=== PATIENT | female | born 1995 | race Caucasian/White ===

== ENCOUNTER 2018-03-08 09:27 | Emergency (ER) | payer SELFPAY ==
[2018-03-08 09:37] VITALS: RESP 18; O2SAT 100
[2018-03-08 10:50] LABS: SQUAMOUS EPITHIAL < 1 /hpf (0-5); URINE BILIRUBIN NEGATIVE (NEGATIVE); URINE BLOOD SMALL (NEGATIVE); URINE CLARITY SLIGHTY-CLOUDY (Clear); URINE COLOR YELLOW (YELLOW); URINE GLUCOSE (UA) NEG (Normal); URINE LEUKOCYTE ESTERASE NEG Leu/uL (Negative); URINE PROTEIN NEGATIVE (NEGATIVE); URINE UROBILINOGEN 0.2-1.0 mg/dL (0.2-1.0)
--- NOTE | 2018-03-08 13:22 | US ---
Date of service: 03/08/2018 PROCEDURE: Obstetrical ultrasound examination, limited HISTORY: Placenta location/dating COMPARISON: Not available TECHNIQUE: Transabdominal FINDINGS: Single live intrauterine gestation in breech presentation. heart rate 143 beats per minute. Normal quantity of amniotic fluid. Posterior placenta. No evidence of placenta previa. Cervix measures 4.5 cm in length and is closed. biometry yields a gestational age of 19 weeks 4 days. The ISABELLE by ultrasound is 07/29/2018. Review of anatomy is in grossly limited at this time. There is fluid distending the stomach and urinary bladder. A 4 chamber heart is demonstrated. The anterior abdominal wall is intact. IMPRESSION: Single live intrauterine gestation of approximately 19 weeks 4 days. heart rate 143. Posterior placenta. No previa. Cervix closed. No gross anatomic abnormality.
--- NOTE | 2018-03-08 15:37 | OBDCSUM ---
Datetime: 03/08/2018 13:24 Discharged to, Provider: Home Follow up at, Provider: PETEY Retana Instr Activity: Normal activity Disch Instr Diet: Regular Discharge Time: 03/08/2018 13:24 Follow up in weeks, Provider: 03/18/18@ 10:15 am Disch Referrals: None Disch Activity Restrictions: No sexual activity; Nothing in vagina - [place], tampons, douche Discharge Diagnosis Prov Other: No evidence of vaginal bleeding
--- NOTE | 2018-03-08 15:38 | OBHP ---
Datetime: 03/08/2018 13:23 IP Adm Impression: , intrauterine ; No Active Labor; Intact Membranes IP Admit Plan: Observation/Evaluation; Discharge home Admit Comment, IP Provider: HPI: Silvana is a 22yo G1 at 20.3 weeks who presents to triage for evaluat ion of some light vaginal spotting. She began having mild lower abdominal cramping Wednesday evening f ollowed by one episode of a small amount of bright red blood Wednesday morning on the toilet paper when she wiped. She's had no further episodes of bleeding since. Does endorse some dysuria and urinary urg ency but denies diarrhea, nausea or vomiting. She recently moved from [place], [place] with a friend to live in [place] with another corazon weber. She reports early care with a firm LMP and 12 week dating US, though she has not decided which clinic to establish with here. Denies any complications with this . ROS: As above, otherwise negative PMH: Denies PSH: Denies Family History: Denies Medications: PNV Allergies: NKDA OBJECTIVE See physical exam section Doppler - FHR 155 Labs: UA negative for LCE and nitrites Ultrasound: posterior placenta, no placenta previa Assessment/Plan: 22 yo G1 at 20.3 weeks here for evaluation of one episode of vaginal spotting jose roximately 24 hours ago. On initial evaluation she was found to be hemodynamically stable with approp riate heart rate and no vaginal bleeding on speculum exam. Her UA was unremarkable and her US s howed no placenta abnormalities. At this time there is no indication of placenta previa or a signific ant abruption or cervicitis/other infectious etiology. She is stable for discharge home and follow-up as an outpatient. She was given the number for the [facility] and will establish care there. The patient understood the plan and all questions were answered. Gertrude Reyes MD [facility]. I spole with this patinet. She understood medical condition. No intercou rse. rest and follow up [facility]. MAHNDO Comments, ACOG Physical Exam: General: alert, oriented, no acute distress HEENT: mucous membranes moist Respiratory: nonlabored respirations CV: Regular rate Abdomen: nontender, gravid Speculum exam: closed cervix with ectropion visualized, no blood seen EGA AdmitDate IP: 20.3 IP Chief Complaint: Vaginal bleeding
[2018-03-08 18:05] VITALS: BP 83/65; PULSE 93; TEMP 98.2
== END 2018-03-08 13:20 | disposition home or self-care (01) ==
LOC: H.EROB2 09:27 → H.EROB 10:25 → H.EROB2 13:20
DX: O26.852 Spotting complicating pregnancy, second trimester (principal); O26.92 Pregnancy related conditions, unspecified, second trimester; R10.2 Pelvic and perineal pain; Z3A.20 20 weeks gestation of pregnancy

== ENCOUNTER 2018-07-30 22:48 | Inpatient (IN) | payer MEDICAID, SELFPAY ==
[2018-07-30 23:47] VITALS: BMI 32.5
--- NOTE | 2018-07-31 00:06 | OBADHP ---
Datetime: 07/30/2018 23:59 Admit Comment, IP Provider: 22yo at 40wks GA c/o leaking fluid starting at 9PM yesterday (>24hr s ago). Denies VB, ctxs. Reports normal FM. records reviewed. PMHx denies PSHx denies Meds PNV NKDA OBHx SocHx Denies tob, etoh, drugs A-- 40wks, PROM, GBS negative P-- Plan for cervadil for cervical ripening. FHT category I. Discussed plan with patient and all patient questions answered. Pelvic Type - PN: Adequate Extremities - PN: Normal Abdomen - PN: Normal Back - PN: Normal Breast - PN: Normal Lungs - PN: Normal Heart - PN: Normal Thyroid - PN: Normal Neurologic - PN: Normal HEENT - PN: Normal General - PN: Normal FHR - Baseline A Provider: 140s-150s Membranes, Provider: Ruptured Contraction Comments Provider: occas Comments, ACOG Physical Exam: SSE: +grossly ruptured, clear fluid cephalic via exam EFW 7.5lbs Pool Provider: Positive Nitrazine Provider: Positive Vital Signs Provider: Reviewed; Within Normal Limits IP Chief Complaint: Suspected ruptured membranes NICHD Variability Prov Fetus A: Moderate 6-25bpm NICHD Accel Fetus A IP Provider: 15X15 FHR Category Provider Fetus A: Category I NICHD Decel Fetus A IP Provider: None Dilatation, Provider: 0 Effacement, Provider: 25 Station, Provider: -3 Genitourinary Exam: Normal DTRs - PN: Normal EGA AdmitDate IP: 40.2 IP Adm Impression: Term, intrauterine ; No Active Labor; Ruptured Membranes IP Admit Plan: Admit to unit; Initiate labor induction protocol
[2018-07-31] MEDS: Lactated Ringer's 1,000 ML IV SCH (00:16)
[2018-07-31 00:48] LABS: BASO % 0.2 % (0.0-2.0); EOS # 0.1 K/uL (0.0-0.7); HEMOGLOBIN 13.5 g/dL (12.0-16.0); LYMPH # 2.3 K/uL (1.0-4.3); LYMPH % 20.4 % (20.0-40.0); MEAN CELL VOLUME 90.6 fl (81.0-99.0); MEAN CORPUSCULAR HEMOGLOBIN 30.4 pg (27.0-31.0); MEAN CORPUSCULAR HGB CONC 33.5 g/dL (33.0-37.0); MEAN PLATELET VOLUME 8.8 fl (7.2-11.7); MONO # 1.1 K/uL (0.0-0.8); MONO % 9.4 % (0.0-10.0); NEUT # 7.7 K/uL (1.8-7.0); RBC 4.46 Mil/uL (3.80-5.20); RED CELL DISTRIBUTION WIDTH 12.6 % (11.5-14.5); WHITE BLOOD COUNT 11.2 K/uL (4.8-10.8)
[2018-08-01] MEDS ORDERED: Oxytocin 30 UNIT 30 UNITS/500 ML BAG IV ONE ×2 (04:02→14:18)
[2018-08-01] MEDS ORDERED: Nalbuphine HCL 10 mg/ml Ampule IVP PRN (05:50)
[2018-08-01] MEDS ORDERED: Nalbuphine 20 mg/ml Inj (10 ml) ONE (05:53)
[2018-08-01] MEDS: Lactated Ringer's 1,000 ML IV SCH ×6 (07:30→18:00)
[2018-08-01] MEDS ORDERED: Fentanyl/Bupivacaine HCl 250 ML EPI ONE (09:24)
[2018-08-01] MEDS ORDERED: OXYTOCIN/0.9 % NS 20 UNIT/1,000 ML BAG IV ONE (14:18)
[2018-08-01] MEDS ORDERED: Bupivacaine HCl 0.25% PF (10 ml) Inj ONE (14:57)
[2018-08-01] MEDS ORDERED: Lidocaine 1% Inj (20ml) ONE (15:09)
[2018-08-01] MEDS ORDERED: ceFAZolin IV 2 gm in Dextrose 2 GM/50 ML BAG IVPB SCH (20:11)
--- NOTE | 2018-08-01 20:50 | OBPN ---
Datetime: 08/01/2018 20:46 IP Progress Impression: Arrest of dilatation/descent IP Informed Consent Obtain: Risks, Benefits and Alternatives Discussed IP Procedures: Sterile Vag Exam IP Progress Plan: Deliver- Section Membranes, Provider: Ruptured Amniotic Fluid Color, Provider: Meconium, Light Contraction Comments Provider: Q3 FHR - Baseline A Provider: 140"S IP Progress Note Comment: 22 yo G1 at 40+3 w/ arrrest of descent Discussed dx to pt and her Consents for procedure and possible blood transfusion obtained Will proceed w/ section (Annotations: Data stored by CPN on behalf of user) Vital Signs Provider: Reviewed NICHD Accel Fetus A IP Provider: 15X15 FHR Category Provider Fetus A: Category I NICHD Variability Prov Fetus A: Moderate 6-25bpm Dilatation, Provider: 10 Effacement, Provider: 100 Station, Provider: 1 NICHD Decel Fetus A IP Provider: None Datetime: 08/01/2018 08:05 Gestation - Est Wks by US: 40.3
[2018-08-01] MEDS ORDERED: Morphine 1 mg/ml preservative-free Inj(Duramorph) ONE (20:58)
[2018-08-01] MEDS ORDERED: Oxycodone/Acetaminophen 5/325 mg Tab PO PRN ×2 (22:28)
--- NOTE | 2018-08-01 22:41 | OBDS ---
DELIVERY PERSONNEL Delivery Doctor: Darrin Tubbs MD Scrub Nurse: Allison Hansen OBT Bariatric Surgeon: Joya Woods RN Anesthesiologist: Stefan Pollock MATERNAL INFORMATION Delivery Anesthesia: Epidural; Spinal Medications in Delivery: ancef 2 grams, pitocin 30 units/500ml Placenta Cultured: No Maternal Complications: None Provider Comments: Pre-op dx: 22 yo G1 at 40+ 3 wks w/ arrest of descent at +1 station Post-op dx: Same Procedure: Primary low transverse section Surgeon: Suly Assistants: Drs. Nathan Menendez, PGY-3 and Josh Rashid, PGY-1 Anesthesia: Spinal Anesthesiologist: Dr. Stefan Beyer Findings: Viable male infant delivered through thick meconium in direct OP position w/ nuchal cord x1 at 2134. Apgars 9 and 9. Wt 7#7, 3370gms. Nl appearing uterus, tubes, and ovaries. EBL: 900mL Complications: None LABOR SUMMARY EDC: 07/29/2018 00:00 No. Babies in Womb: 1 LABOR INFORMATION Reason for Induction: Not Applicable Cervical Ripening Agents: Cytotec @ 25 mcg VAG Oxytocin: Augmentation Group B Beta Strep: Negative Antibiotics # of Doses: 0 Antibiotics Time of Last Dose: n/a Reason Steroids Not Administered: Not Applicable MEMBRANES Membranes Rupture Method: Spontaneous Rupture of Membranes: 07/29/2018 21:00 Length of Rupture (hrs): 72.57 Amniotic Fluid Color: Heavy Meconium Amniotic Fluid Amount: Small Amniotic Fluid Odor: Normal STAGES OF LABOR Stage 3 hrs: 0 Stage 3 min: 0 CSECTION DELIVERY Primary Indication: Arrest of Descent CSection Urgency: Non Elective CSection Incidence: Primary Labor: Labor Elective: Nonelective CSection Incision: Lower Uterine Transverse BABY A INFORMATION Infant Delivery Date/Time: 08/01/2018 21:34 Method of Delivery: Born in Route : No : N/A Forceps: N/A Vacuum Extraction: N/A Shoulder Dystocia : No SHOULDER DYSTOCIA BABY A Infant Delivery Date/Time: 08/01/2018 21:34 PRESENTATION/POSITION BABY A Presentation: Cephalic Cephalic Presentation: Vertex Breech Presentation: N/A PLACENTA INFORMATION BABY A Placenta Delivery Time : 08/01/2018 21:34 Placenta Method of Delivery: Spontaneous Placenta Status: Delivered SCORES BABY A Heart Rate 1 min: >100 bpm Resp Effort 1 min: Good Cry Reflex Irritability 1 min: Cough or Sneeze or Pulls Away Muscle Tone 1 min: Active Motion Color 1 min: Body [place], Extremities Blue Resuscitation Effort 1 min: Tactile Stimulation SCORE 1 MIN: 9 Heart Rate 5 min: >100 bpm Resp Effort 5 min: Good Cry Reflex Irritability 5 min: Cough or Sneeze or Pulls Away Muscle Tone 5 min: Active Motion Color 5 min: Body [place], Extremities Blue Resuscitation Effort 5 min: N/A SCORE 5 MIN: 9 INFORMATION BABY A Gestational Age at Delivery: 40.3 Gestational Status: Term Infant Outcome : Liveborn Condition : Stable Infant Sex: Male IDENTIFICATION/MEDS BABY A ID Band Number: [id number] ID Band Location: Left Leg; Left Arm WEIGHT/LENGTH BABY A Infant Birthweight (gms): 3370 Weight (lb): 7 Infant Weight (oz): 7 CORD INFORMATION BABY A No. Cord Vessels: 3 Nuchal Cord : Around Neck x1, Loose Cord Blood Taken: Yes Suction: Mouth; Nose
[2018-08-02] MEDS ORDERED: Simethicone 80 mg Chewtab PO SCH (01:00)
[2018-08-02] MEDS ORDERED: Lactated Ringer's 1,000 ML IV SCH ×3 (01:15→23:45)
[2018-08-02] MEDS ORDERED: Oxycodone/Acetaminophen 5/325 mg Tab PO PRN (01:31)
[2018-08-02 06:26] LABS: MEAN CELL VOLUME 92.9 fl (81.0-99.0); MEAN CORPUSCULAR HEMOGLOBIN 30.6 pg (27.0-31.0); MEAN CORPUSCULAR HGB CONC 32.9 g/dL (33.0-37.0); RBC 3.92 Mil/uL (3.80-5.20); RED CELL DISTRIBUTION WIDTH 12.6 % (11.5-14.5); WHITE BLOOD COUNT 26.4 K/uL (4.8-10.8)
--- NOTE | 2018-08-02 07:08 | OP ---
PROCEDURE DATE: 08/01/2018 PREOPERATIVE DIAGNOSIS: This is a 22-year-old G1 at 41 weeks and 3 days with arrest of descent at plus 1 station. POSTOPERATIVE DIAGNOSIS: This is a 22-year-old G1 at 41 weeks and 3 days with arrest of descent at plus 1 station. PROCEDURE: Primary low transverse section. SURGEON: Bessie Tubbs MD ASSISTANTS: Nathan Menendez DO, PGY-3; surgery resident PGY-3; and Josh Rashid, family services worker, PGY-1. TYPE OF ANESTHESIA: Spinal. ANESTHESIA ADMINISTERED BY: Stefan Beyer MD FINDINGS: A viable male delivered through thick meconium in direct OP position with a nuchal cord x1 at 2134, Apgars 9 and 9 at one and five minutes respectively. The weight was 7 pounds 7 ounces or 3370 g. Normal-appearing uterus, tubes, and ovaries. ESTIMATED BLOOD LOSS: 900 mL. COMPLICATIONS: None. DESCRIPTION OF PROCEDURE: The patient was taken to the operating room where spinal anesthesia was placed. She was then prepped and draped in the normal sterile fashion in the dorsal supine position with a leftward tilt. A Echevarria had been placed in the bladder. The spinal was tested and found to be adequate. A Pfannenstiel skin incision was then made with a scalpel and carried through to the underlying layer of fascia with the Bovie. The fascia was incised in the midline. The incision was extended laterally with the Bovie over a Annie clamp. The inferior aspect of the fascial incision was then grasped with Sophia clamps, elevated, and the underlying rectus muscles were dissected off bluntly and with the Bovie. Attention was then turned to the superior aspect of this incision, which in a similar fashion was grasped, tented up with the Sophia clamps. The rectus muscles were dissected off bluntly with the Bovie. The rectus muscles were then in the midline. The peritoneum was identified and entered digitally. The peritoneal incision was then extended superiorly and inferiorly with good visualization of the bladder. The bladder blade was then inserted, and the vesicouterine peritoneum was identified, grasped with pickups, and entered sharply with the Metzenbaum scissors. The incision was then extended laterally, and the bladder flap was created digitally. The bladder blade was then reinserted, and the lower uterine segment was incised in transverse fashion with a scalpel. The uterine incision was then extended laterally digitally. The bladder blade was then removed. The 's head was delivered atraumatically. The cord was clamped and cut. The was handed off to the awaiting deputy assessor. Cord blood was collected. The placenta was then delivered as the uterus was massaged. The uterus was then exteriorized and cleared of all clots and debris with a dry sponge curettage. The uterine incision was then repaired with 0 Vicryl in a running locked fashion. A second layer of the same suture was used in an imbricating fashion to reinforce the incision and for hemostasis. An interrupted stitch was placed in the center of the incision for hemostasis, and then a drvmfi-gl-vlgbl was placed on the right side of the incision for hemostasis. The abdomen was then well irrigated. The uterus was returned to the abdomen. The gutters were cleared of all clots. The uterine incision was re-examined and found to be hemostatic. Three interrupted stitches of 0 chromic were placed to reapproximate the rectus muscle. The fascia was reapproximated with 0 Vicryl in a running fashion. The subcutaneous fat was well irrigated. The Bovie was applied to small bleeders. Interrupted stitches of 2-0 plain gut were placed to close the space of the fat. The skin was then closed with a 4-0 Monocryl in a subcuticular fashion. The patient tolerated the procedure well. Sponge, lap, and needle counts were correct. The patient had received 2 g of Ancef prior to the procedure. The patient was taken to the recovery room in stable condition. Bessie Tubbs MD PANKAJ
[2018-08-02] MEDS: Multivitamin With Minerals Tab PO SCH (08:43)
[2018-08-02] MEDS: Oxycodone/Acetaminophen 5/325 mg Tab PO PRN (08:44)
[2018-08-02] MEDS: Simethicone 80 mg Chewtab PO SCH ×2 (08:45→18:53)
[2018-08-02] MEDS ORDERED: Multivitamin With Minerals Tab PO SCH (09:00)
--- NOTE | 2018-08-02 10:09 | OBPPN ---
Datetime: 08/02/2018 06:34 PP Pain Prov: Within normal limits PP Nausea Prov: Denies PP Flatus Prov: Yes PP BM Prov: No PP Breasts Prov: Not Done PP Heart Prov: Normal PP Lungs Prov: Normal PP Abdomen/Uterus Prov: Normal PP Lochia Prov: Normal PP Vulva/Perineum Prov: Not Done PP CVA Tenderness Prov: Normal PP Extremities Prov: Normal PP C/S Incision Prov: Normal PP Progress Prov: Normal PP Impression Prov: Normal progression PP Plan Prov: Continue present management PP Progress Note Prov: 22 yo s/p C -section on 08/02/18, on POD1 Patient seen and examined at bedside in AM. No acute events overnight. Reports mild abdominal pain , well controlled with pain medications at this point. Echevarria still present, Dressing intact, C/D/I. L ochia equal to menses. Pt able to pass flatus but No BM yet. Patient was NPO overnight, TO be started on clear liquid now. Denies any nausea, vomtiing, diarrhea, F/C, CP, SOB. O: VSS, BP 130/73 Gen: NAD Chest: RRR, S1S2 present Lungs: CTAB, No rales, rhonchi, wheeze Abdomen; tenderness to palpation. Uterus is firm and at the level of the umbilicus. EXT: No edema, calves non-tender to palpation Assessment/Plan: 22 yo s/p C -section on 08/02/18, on POD1. Pt remains afebrile, tolerating pa in with medication. OOB with caution - SCDs for DVT prophylaxis, encouraged ambulating - Ibuyprofen and percocet for pain - Senokot for constipation - Continue to encourage and ambulating - f/u CBC post op: Pending - Continue present Management, advance diet as tolerated. --- Josh Rashid MD PGY-1 OB Hospitalist: On rounds, I saw this patient. Agree with note. LEXISNDO Vital Signs Provider PP: Reviewed
--- NOTE | 2018-08-02 11:36 | OBPN ---
Datetime: 07/31/2018 23:01 Contraction Comments Provider: irregular FHR - Baseline A Provider: 140 Gestation - Est Wks by US: 40.2 Presentation-Admit: Vertex IP Progress Note Comment: IUP at 40.2weeks being induced for SROM S/P CervidilX1, followed by Cytotec #2 Reassuring Maternal status Plan: Continue with cervical ripening Monitor the progress of labor Vital Signs Provider: Reviewed; Within Normal Limits NICHD Accel Fetus A IP Provider: 15X15 FHR Category Provider Fetus A: Category I NICHD Variability Prov Fetus A: Moderate 6-25bpm Dilatation, Provider: 2 Effacement, Provider: 70 Station, Provider: -2 NICHD Decel Fetus A IP Provider: None
--- NOTE | 2018-08-02 11:37 | OBPN ---
Datetime: 07/31/2018 23:01 IP Progress Impression: Reassuring heart rate IP Procedures: Sterile Vag Exam IP Progress Plan: Cervical Ripening Datetime: 07/31/2018 18:58 FHR - Baseline A Provider: 150 Vital Signs Provider: Reviewed; Within Normal Limits NICHD Accel Fetus A IP Provider: 15X15 FHR Category Provider Fetus A: Category I NICHD Variability Prov Fetus A: Moderate 6-25bpm Dilatation, Provider: 1 Effacement, Provider: 30 Station, Provider: -2 NICHD Decel Fetus A IP Provider: None Datetime: 07/31/2018 12:17 IP Progress Note Comment: 22 yo with IUP @ 40weeks. Patient is resting comfortably in bed and i n no acute distress. Cervadil was placed at 0010 07/31/18. Removed at 1200 07/31/18. Sterile vaginal exam demonstrates ce rvix as closed, posterior , 30% effaced and 3- station. A+P: 22 yo with IUP @ 40weeks - Reactive EFM - Patient ambulating - Cytotec 25mg placed intravaginally. - Continue EFM Evon Iparraguirrannie, PGY 1 Attending Note; Patient was exmined with resident and I agree with the above findings. Datetime: 07/30/2018 23:59 Pool Provider: Positive Nitrazine Provider: Positive Membranes, Provider: Ruptured Contraction Comments Provider: occas
--- NOTE | 2018-08-02 15:42 | RAD ---
Date of service: 08/02/2018 HISTORY: + Quantiferon gold COMPARISON: None available. FINDINGS: LUNGS: Poor inspiration with low lung volumes, crowded bronchovascular markings and bibasilar atelectasis.. PLEURA: No significant pleural effusion identified, no pneumothorax apparent. CARDIOVASCULAR: No aortic atherosclerotic calcification present. Cardiomegaly.. OSSEOUS STRUCTURES: No significant abnormalities. VISUALIZED UPPER ABDOMEN: Normal. OTHER FINDINGS: None. IMPRESSION: Poor inspiration with low lung volumes, crowded bronchovascular markings and bibasilar atelectasis..
[2018-08-03 00:42] LABS: BASO % 0.2 % (0.0-2.0); EOS # 0.1 K/uL (0.0-0.7); EOS % 0.3 % (0.0-4.0); HEMOGLOBIN 11.5 g/dL (12.0-16.0); LYMPH # 1.6 K/uL (1.0-4.3); MEAN CELL VOLUME 90.9 fl (81.0-99.0); MEAN CORPUSCULAR HGB CONC 34.1 g/dL (33.0-37.0); MEAN PLATELET VOLUME 8.6 fl (7.2-11.7); MONO # 0.9 K/uL (0.0-0.8); MONO % 3.9 % (0.0-10.0); NEUT # 20.3 K/uL (1.8-7.0); NEUT % 88.6 % (50.0-75.0); PLATELET COUNT 272 K/uL (130-400); RBC 3.71 Mil/uL (3.80-5.20); RED CELL DISTRIBUTION WIDTH 12.9 % (11.5-14.5); WHITE BLOOD COUNT 22.9 K/uL (4.8-10.8)
[2018-08-03] MEDS: Oxycodone/Acetaminophen 5/325 mg Tab PO PRN ×2 (01:09→09:51)
[2018-08-03 01:47] LABS: SQUAMOUS EPITHIAL < 1 /hpf (0-5); URINE AMORPHOUS SEDIMENT RARE /ul (<OCC); URINE BILIRUBIN NEGATIVE (NEGATIVE); URINE BLOOD SMALL (NEGATIVE); URINE CLARITY CLEAR (Clear); URINE COLOR YELLOW (YELLOW); URINE GLUCOSE (UA) 50 mg/dL (NEGATIVE); URINE LEUKOCYTE ESTERASE NEG Leu/uL (Negative); URINE PROTEIN NEGATIVE (NEGATIVE); URINE UROBILINOGEN 0.2-1.0 mg/dL (0.2-1.0)
[2018-08-03] MEDS: Simethicone 80 mg Chewtab PO SCH ×3 (01:48→16:17)
[2018-08-03 02:31] LABS: BANDS 1 % (0-2); LYMPHOCYTE 9 % (20-50); MONOCYTE 4 % (0-10); NEUTROPHIL 86 % (42-75); PLATELET ESTIMATE NORMAL (NORMAL); SMUDGE CELLS PRESENT; TOTAL CELLS COUNTED 100; TOXIC GRANULATION PRESENT
[2018-08-03] MEDS: Multivitamin With Minerals Tab PO SCH (08:33)
--- NOTE | 2018-08-03 12:15 | OBPPN ---
Datetime: 08/03/2018 06:13 PP Pain Prov: Within normal limits PP Nausea Prov: Denies PP Flatus Prov: Yes PP BM Prov: No PP Breasts Prov: Not Done PP Heart Prov: Normal PP Lungs Prov: Normal PP Abdomen/Uterus Prov: Normal PP Lochia Prov: Normal PP Vulva/Perineum Prov: Not Done PP CVA Tenderness Prov: Normal PP Extremities Prov: Normal PP C/S Incision Prov: Normal PP Progress Prov: Normal PP Impression Prov: Endometritis PP Plan Prov: Antibiotic therapy PP Progress Note Prov: 22 yo s/p C -section on 08/02/18, on POD2 Patient seen and examined at bedside in AM. Pt had fever of 102.4 last night. Labs orderd and star tc on Abx. Reports mild abdominal pain, well controlled with pain medications at this point. Echevarria a nd dressing removed. Incision site C/D/I. Lochia less than menses. Pt able to pass flatus and had BM. Tolerating diet well PO. Denies any nausea, vomtiing, diarrhea, F/C, CP, SOB. O: VSS, temp 99.6 Gen: NAD Chest: RRR, S1S2 present Lungs: CTAB, No rales, rhonchi, wheeze Abdomen; tenderness to palpation. Uterus is firm and at the level of the umbilicus. EXT: No edema, calves non-tender to palpation Assessment/Plan: 22 yo s/p C -section on 08/02/18, on POD2. Suspected endometritis vs UTI. - F/U BCx and UCx - COntinue Clindamycin and gentamycin. - SCDs for DVT prophylaxis, encouraged ambulating - Tylenol 650- mg Q6hr PRN for fever - Ibuyprofen and percocet for pain - Senokot for constipation - Continue to encourage and ambulating - f/u CBC post op: 11.5/36.7 - Monitor vitals, F/U labs. --- Josh Rashid MD PGY-1 The patient was seen with the resident I agree with the note Vital Signs Provider PP: Reviewed (Annotations: Data stored by CPN on behalf of user) Datetime: 08/02/2018 22:48 Vital Signs Provider Details PP: Feover 102.6 @ 22:40 PM
[2018-08-04] MEDS: Simethicone 80 mg Chewtab PO SCH ×2 (00:23→08:21)
[2018-08-04] MEDS: Multivitamin With Minerals Tab PO SCH (08:19)
--- NOTE | 2018-08-04 10:22 | OBPPN ---
Datetime: 08/04/2018 06:23 PP Pain Prov: Within normal limits PP Nausea Prov: Denies PP Flatus Prov: Yes PP BM Prov: Yes PP Breasts Prov: Not Done PP Heart Prov: Normal PP Lungs Prov: Normal PP Abdomen/Uterus Prov: Normal PP Lochia Prov: Normal PP Vulva/Perineum Prov: Not Done PP CVA Tenderness Prov: Normal PP Extremities Prov: Normal PP C/S Incision Prov: Normal PP Progress Prov: Normal PP Impression Prov: Normal progression PP Plan Prov: Continue present management PP Progress Note Prov: 22 yo s/p C -section on 08/02/18, on POD3 Patient seen and examined at bedside in AM. Patient currently on Clindamycin and gentamycin. Afebr ile for 24 hours on Abx. Blood Cx and UC pending. Reports mild abdominal pain, well controlled with p ain medications at this point. Echevarria and dressing removed. Incision site C/D/I. Lochia less than mens es. Pt able to pass flatus and had BM. Tolerating regular diet well. Voiding well w/o difficulties. D enies any nausea, vomiting, diarrhea, F/C, CP, SOB. O: VSS, Afebrile Gen: NAD Chest: RRR, S1S2 present Lungs: CTAB, No rales, rhonchi, wheeze Abdomen; tenderness to palpation. Uterus is firm and at the level of the umbilicus. EXT: No edema, calves non-tender to palpation Assessment/Plan: 22 yo s/p C -section on 08/02/18, on POD3. Received clindamycin and gentamyci n for suspected endometritis vs UTI. - F/U BCx and UCx - D/C Clindamycin and gentamycin. - SCDs for DVT prophylaxis, encouraged ambulating - Tylenol 650 - mg Q6hr PRN for fever - Ibuprofen and Percocet for pain - Senokot for constipation - Continue to encourage and ambulating - f/u CBC post op: 11.5/36.7 - Patient Afebrile for 24 hours, VSS, BCx negative 24 hrs. Anticipated discharge on 08/04/18 --- Josh Rashid MD PGY-1 Vital Signs Provider PP: Reviewed; Within Normal Limits
--- NOTE | 2018-08-04 10:27 | OBDCSUM ---
Datetime: 08/04/2018 06:25 Discharged to, Provider: Home Follow up at, Provider: [facility], Dr. Hernandez Disch Instr Activity: Normal activity; May Shower Disch Instr Diet: Regular Discharge Instructions, Provider: Routine instructions given Discharge Diagnosis, Provider: Term Delivered Follow up in weeks, Provider: 1 week, 4-6 wks Disch Referrals: None Contraception discussed, Prov: Yes Disch Activity Restrictions: No exercising; No lifting; No sexual activity; Nothing in vagina - Inte rcourse, tampons, douche Discharge Comment, Provider: Discharge Summary DOA: 07/30/2018 EGA: 40.3 Diagnosis: Primary due to Arrest of decent Summary of : 22 y/o s/p Primary due to Arrest of decent on 08/01/18 L_D summary: Patient tolerated surgery well. Pain was well controlled with pain meds. Patient had fever of 102.6 on POD1 for which CBC, UA, UC, BC was done. Patient received Clindamycin and Gentamyci n and remained afebrile for 24 hours prior to DC. D/c rothman, dressing removed, incision site healing well, no exudate seen, dry and intact. No nausea advised to advance diet as tolerated. Breast feeding without difficulty and supplementing with formula. Lochia is similar to menses volume. Reports she h as been having regular bowel movements. DOL: 08/01/18 at 21:34 Primary NB: Male : [birth year] Weight: 3370 g Circumcision: Done Lochia= menses, mild pain, controlled with medications Rubella immune, Tdap 06/28/18 Blood type: A+, Antibody Neg CBC pp: 11.5/33.7 Discharge Date: 08/04/2018 Time 10:00 AM Discharge Instructions: -Encourage -Encourage ambulation -Percocet/Ibuprofen for pain PRN - ED precautions: If excessive bleeding, pain that does not get relief, fever >100.4, palpitations , SOB, CP or other concerning symptom go to the ED. - PT was urged if feeling sad, mood swing, depression, neglect of baby, suicidal thoughts, homicid al thoughts go to ER or call 911 for help - Pt should go to her Primary care doctor if have difficulty with breast feeding - F/U at [facility] in 1 week for wound check and 4-6 week for checkup. -- Josh Rashid MD PGY-1 Contraception after Delivery: Undecided
[2018-08-05 01:48] VITALS: BP 125/85; PULSE 73; RESP 20; TEMP 98.6; O2SAT 97
== END 2018-08-04 16:00 | disposition home or self-care (01) | DRG 540 ==
LOC: H.EROB2 22:48 → H.L&D 23:49 → H.OB/GYN 08-02 01:28
PROVIDERS: ADMIT Obstetrics & Gynecology; ATTEND Obstetrics & Gynecology
PROC: 4A1HXCZ Monitoring of Products of Conception, Cardiac Rate, External Approach (ICD-10-PCS; 2018-07-30)
PROC: 10D00Z1 Extraction of Products of Conception, Low, Open Approach (ICD-10-PCS; principal; 2018-08-01)
DX: O77.0 Labor and delivery complicated by meconium in amniotic fluid (principal); O48.0 Post-term pregnancy; O69.81X0 Labor and delivery complicated by cord around neck, without compression, not applicable or unspecified; Z37.0 Single live birth; Z3A.40 40 weeks gestation of pregnancy; O62.1 Secondary uterine inertia; O42.02 Full-term premature rupture of membranes, onset of labor within 24 hours of rupture